=== PATIENT | male | born 1985 | race Caucasian/White ===

== ENCOUNTER → 2017-06-14 | Outpatient (CLI) | payer OTHER ==
--- NOTE | 2017-06-14 11:12 | REP ---
Chest x-ray: Two views. History: Mild persistent asthma without complication. Comparison study: July 30, 2016. Findings: The lungs are well inflated and free of infiltrate. The pleural angles are sharp. The heart size is normal. Pulmonary vasculature is not increased. No significant bony abnormality is seen. Impression: Negative chest x-ray. Signed by Jame Galeano MD 06/14/2017 11:04 A
== END ==
LOC: M ADAMS 09:56
PROVIDERS: ATTEND Physician Assistant Medical
DX: J45.30 Mild persistent asthma, uncomplicated (principal)

== ENCOUNTER → 2017-06-21 | Outpatient (CLI) | payer MEDICAID, OTHER, SELFPAY ==
--- NOTE | 2017-06-21 15:06 | PFTRPT ---
Tech: Get [employer] Age: 31 Sex: Male Race: Height: 73.00 Inches Weight: 220.00 Lbs BSA: 2.24 Diagnosis: J45.30 PULMONARY FUNCTION REPORT ORDERING PROVIDER: Patricia De La Garza PA-C DATE OF SERVICE: 06/21/17 SPIROMETRY: Pre and post bronchodilator study of excellent technical quality. The forced vital capacity is normal. The FEV1 is generally in proportion. The obstructive index is, therefore, normal. FLOW VOLUME LOOP: The expiratory limb of the flow volume loop is normal. No significant bronchodilator response is identified. LUNG VOLUMES: The total lung capacity is borderline elevated. The residual volume is in proportion. DIFFUSION CAPACITY: The diffusion capacity is normal. HEMOGLOBIN: No hemoglobin is available for correction. AIRWAY MECHANICS: Airways resistance and conductance are normal. IMPRESSION: Essentially normal study. MTDD
== END ==
LOC: M CARPUL 12:51
PROVIDERS: ATTEND Physician Assistant Medical
DX: J45.30 Mild persistent asthma, uncomplicated (principal)

== ENCOUNTER → 2017-12-30 | Outpatient (REF) | payer OTHER ==
[2017-12-30 15:26] LABS: INFLUENZA A AMPLIFICATION POSITIVE (NEGATIVE); INFLUENZA B AMPLIFICATION NEGATIVE (NEGATIVE)
== END ==
LOC: M LAB REF 10:16
DX: J11.1 Influenza due to unidentified influenza virus with other respiratory manifestations (principal)

== ENCOUNTER → 2019-06-30 | Outpatient (CLI) | payer OTHER ==
[~2019-06-30] MED LIST: GASTROGRAFIN SOLUTION 30ML (Q9963) As Ordered ONE; ISOVUE-370 76% 100ML VIAL (Q9967) As Ordered ONE
[2019-06-30 15:34] LABS: BASO % 0.6 % (0.0-1.0); EOS # 0.5 10^3/uL (0.0-0.50); HEMATOCRIT 42.9 % (42.0-52.0); HEMOGLOBIN 14.7 g/dl (13.5-17.5); LYMPH # 2.1 10^3/uL (1.5-4.5); LYMPH % 28.6 % (24.0-44.0); MEAN CORPUSCULAR HEMOGLOBIN 32.3 pg (27.0-33.0); MEAN CORPUSCULAR HGB CONC 34.3 g/dl (32.0-36.5); MEAN CORPUSCULAR VOLUME 94.3 fl (80.0-96.0); MONO # 0.7 10^3/uL (0.0-0.8); NEUTROPHILS # 3.8 10^3/uL (1.8-7.7); NEUTROPHILS % 53.5 % (36.0-66.0); PLATELET COUNT, AUTOMATED 285 10^3/uL (150-450); RED BLOOD COUNT 4.55 10^6/uL (4.30-6.10); WHITE BLOOD COUNT 7.2 10^3/uL (4.0-10.0)
[2019-06-30 15:57] LABS: ALBUMIN 3.9 GM/DL (3.2-5.2); ALT/SGPT 31 U/L (12-78); BILIRUBIN,TOTAL 0.9 MG/DL (0.2-1.0); BLOOD UREA NITROGEN 11 MG/DL (7-18); CALCIUM LEVEL 8.9 MG/DL (8.5-10.1); CARBON DIOXIDE LEVEL 27 MEQ/L (21-32); CHLORIDE LEVEL 110 MEQ/L (98-107); CREATININE FOR GFR 1.08 MG/DL (0.70-1.30); GLOMERULAR FILTRATION RATE > 60.0 (>60); GLUCOSE, FASTING 85 MG/DL (70-100); LIPASE 142 U/L (73-393); POTASSIUM SERUM 4.1 MEQ/L (3.5-5.1); SODIUM LEVEL 143 MEQ/L (136-145); TOTAL PROTEIN 7.1 GM/DL (6.4-8.2)
--- NOTE | 2019-06-30 17:18 | REP ---
REASON FOR EXAM: Left lower quadrant pain. COMPARISON: 03/27/2013, a noncontrast enhanced exam and the only prior. CONTRAST: 100 mL of Isovue-370. The lung bases are again seen to be clear. The liver, gallbladder, spleen, pancreas, adrenal glands, and kidneys are within normal limits. The abdominal aorta and paraaortic regions are within normal limits. The bowel loops and their mesenteries are within normal limits. There is no intraabdominal mass or adenopathy. There is no free fluid or free air. CT PELVIS: The bowel loops and their mesenteries are within normal limits. There is no pelvic mass or adenopathy. There is no free fluid or free air. There is corpora amylacea. Bone window technique throughout the exam shows the osseous structures to be stable and intact. 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 IMPRESSION: No acute disease. Findings as described above. Electronically Signed by Zeke Seymour DO 06/30/2019 05:20 P
== END ==
LOC: M RAD 14:46
PROVIDERS: ATTEND Physician Assistant
DX: M43.06 Spondylolysis, lumbar region (principal); R10.814 Left lower quadrant abdominal tenderness; R19.7 Diarrhea, unspecified; R50.9 Fever, unspecified
CPT/HCPCS: 36415; 74177; 80053; 83690; 85025; Q9963; Q9967

== ENCOUNTER 2020-05-10 11:56 | Emergency (ER) | payer MEDICAID, OTHER ==
[~2020-05-10] VITALS: Ht 188 cm; Wt 109.5 kg
[2020-05-10 12:39] LABS: BASO # 0.1 10^3/uL (0.0-0.2); BASO % 0.8 % (0.0-1.0); EOS # 0.5 10^3/uL (0.0-0.5); EOS % 7.2 % (0.0-3.0); HEMATOCRIT 45.3 % (42.0-52.0); HEMOGLOBIN 14.9 g/dl (13.5-17.5); LYMPH # 2.2 10^3/uL (1.5-5.0); LYMPH % 29.7 % (24.0-44.0); MEAN CORPUSCULAR HEMOGLOBIN 30.7 pg (27.0-33.0); MEAN CORPUSCULAR HGB CONC 32.9 g/dl (32.0-36.5); MEAN CORPUSCULAR VOLUME 93.4 fl (80.0-96.0); MONO # 0.7 10^3/uL (0.0-0.8); NEUTROPHILS # 3.8 10^3/uL (1.5-8.5); NEUTROPHILS % 52.7 % (36.0-66.0); PLATELET COUNT, AUTOMATED 299 10^3/uL (150-450); RED BLOOD COUNT 4.85 10^6/uL (4.30-6.10); WHITE BLOOD COUNT 7.2 10^3/uL (4.0-10.0)
[2020-05-10 13:12] LABS: ALT/SGPT 38 U/L (12-78); BILIRUBIN,DIRECT < 0.1 MG/DL (0.0-0.2); BILIRUBIN,TOTAL 0.5 MG/DL (0.2-1.0); BLOOD UREA NITROGEN 12 MG/DL (7-18); CALCIUM LEVEL 9.3 MG/DL (8.5-10.1); CARBON DIOXIDE LEVEL 27 MEQ/L (21-32); CHLORIDE LEVEL 107 MEQ/L (98-107); CREATININE FOR GFR 1.22 MG/DL (0.70-1.30); GLOMERULAR FILTRATION RATE > 60.0 (>60); GLUCOSE, FASTING 98 MG/DL (70-100); LIPASE 140 U/L (73-393); POTASSIUM SERUM 4.7 MEQ/L (3.5-5.1); SODIUM LEVEL 140 MEQ/L (136-145); TOTAL PROTEIN 7.6 GM/DL (6.4-8.2)
[2020-05-10 16:14] VITALS: BP 137/82
--- NOTE | 2020-05-10 16:18 | REP ---
Clinical: Periumbilical pain. Technique: Real time meadows scale and color evaluation using linear high frequency transducer. Findings: Directed ultrasound examination demonstrates a small fat containing periumbilical hernia. Peritoneal defect measures 10 mm on Valsalva and there is no evidence for bowel herniation. Impression: Small fat containing periumbilical hernia. Electronically Signed by Duy Antunez MD 05/10/2020 04:10 P
== END 2020-05-10 16:28 | disposition home or self-care (01) ==
LOC: M ED 11:56
DX: K42.9 Umbilical hernia without obstruction or gangrene (principal); Z87.891 Personal history of nicotine dependence

== ENCOUNTER → 2020-12-07 | Outpatient (REF) | payer OTHER | LOC: M SFHCADAM 11:43 | PROVIDERS: ATTEND Physician Assistant Medical | DX: J45.41 Moderate persistent asthma with (acute) exacerbation (principal); R09.02 Hypoxemia ==

== ENCOUNTER → 2021-07-14 | Outpatient (REF) | payer OTHER ==
[2021-07-14 17:37] LABS: ALBUMIN 3.9 GM/DL (3.2-5.2); BILIRUBIN,DIRECT 0.1 MG/DL (0.0-0.2); BILIRUBIN,TOTAL 0.5 MG/DL (0.2-1.0); TOTAL PROTEIN 7.6 GM/DL (6.4-8.2)
== END ==
LOC: M SFHCADAM 12:13
PROVIDERS: ATTEND Physician Assistant Medical
DX: B37.2 Candidiasis of skin and nail (principal)

== ENCOUNTER → 2021-09-26 | Outpatient (REF) | payer OTHER ==
[2021-09-26 17:40] LABS: TOTAL 25(OH) VITAMIN D 12.2 NG/ML (30.0-100.0)
== END ==
LOC: M SFHCADAM 15:11
PROVIDERS: ATTEND Physician Assistant Medical
DX: L60.9 Nail disorder, unspecified (principal)

== ENCOUNTER → 2023-02-28 | Outpatient (REF) | payer OTHER | LOC: M SFHCDERM 12:53 | PROVIDERS: ATTEND Nurse Practitioner Family | DX: D22.22 Melanocytic nevi of left ear and external auricular canal (principal) ==

== ENCOUNTER 2023-11-26 17:02 | Emergency (ER) | payer OTHER, SELFPAY ==
[~2023-11-26] VITALS: Ht 188 cm; Wt 118.2 kg
[2023-11-26 17:02] VITALS: TEMP 98.9
[2023-11-26] MEDS ORDERED: ALBU8.5H (17:10)
[2023-11-26] MEDS ORDERED: ADV500INH (17:10)
[2023-11-26] MEDS ORDERED: FLUTISP (17:10)
[2023-11-26] MEDS ORDERED: ALBU2.5V10 (17:10)
[2023-11-26] MEDS ORDERED: CETI-24 (17:10)
[2023-11-26] MEDS ORDERED: GLUCAGON INJ 1MG VIAL IV STA (17:23)
[2023-11-26 17:43] LABS: BASO # 0.1 10^3/uL (0.0-0.2); BASO % 0.5 % (0.0-1.0); EOS # 0.4 10^3/uL (0.0-0.5); EOS % 3.4 % (0.0-3.0); HEMOGLOBIN 16.7 g/dl (13.5-17.5); LYMPH % 26.4 % (24.0-44.0); MEAN CORPUSCULAR HEMOGLOBIN 34.4 pg (27.0-33.0); MEAN CORPUSCULAR HGB CONC 34.1 g/dl (32.0-36.5); NEUTROPHILS # 6.9 10^3/uL (1.5-8.5); NEUTROPHILS % 60.4 % (36.0-66.0); PLATELET COUNT, AUTOMATED 417 10^3/uL (150-450); RED BLOOD COUNT 4.85 10^6/uL (4.30-6.10); WHITE BLOOD COUNT 11.4 10^3/uL (4.0-10.0)
[2023-11-26 18:16] LABS: BLOOD UREA NITROGEN 12 MG/DL (9-23); CALCIUM LEVEL 9.3 MG/DL (8.5-10.1); CARBON DIOXIDE LEVEL 29 MMOL/L (20-31); CHLORIDE LEVEL 101 MMOL/L (98-107); GLOMERULAR FILTRATION RATE > 60.0 (>60); GLUCOSE, FASTING 101 MG/DL (60-100); POTASSIUM SERUM 3.6 MMOL/L (3.5-5.1); SODIUM LEVEL 140 MMOL/L (136-145)
[2023-11-26 18:17] LABS: RSV AMPLIFICATION NEGATIVE (NEGATIVE)
[2023-11-26 18:37] VITALS: BP 134/71; O2SAT 95
== END 2023-11-26 18:38 | disposition home or self-care (01) ==
LOC: M ED 17:02
DX: T18.128A Food in esophagus causing other injury, initial encounter (principal); Z91.010 Allergy to peanuts
CPT/HCPCS: 80048; 85025; 87631; 96374; 99284; J1610